=== PATIENT | female | born 1960 | race Caucasian/White ===

== ENCOUNTER 2022-08-14 23:24 | Emergency (ER) | payer OTHER ==
[2022-08-14 23:34] VITALS: BP 153/62; PULSE 90; RESP 18; TEMP 99.6; BMI 28.3
[2022-08-15] MEDS ORDERED: IBUPROFEN 400 MG TABLET (FP) PO ONE (00:01)
== END 2022-08-15 00:56 | disposition home or self-care (01) ==
LOC: JER 23:24
DX: J02.0 Streptococcal pharyngitis (principal)
CPT/HCPCS: 87651; 99283-25

== ENCOUNTER 2023-12-28 02:43 | Emergency (ER) | payer OTHER ==
[2023-12-28 02:50] VITALS: RESP 18; TEMP 97.9; BMI 21.7
[2023-12-28] MEDS ORDERED: MAG HYDROX/AL HYDROX/SIMETH 30 ML UNIT-DOSE CUP ONE (03:40)
[2023-12-28] MEDS ORDERED: FAMOTIDINE 20 MG/50 ML IVPB 20 MG/50 ML MG IVPB ONE (03:40)
[2023-12-28] MEDS ORDERED: ONDANSETRON 4 MG/2 ML VIAL ONE (03:40)
[2023-12-28 03:41] LABS: BASO % 0.9 % (0-2.0); EOS % 0.8 % (0-4.5); HEMATOCRIT 30.1 % (32.4-45.2); HEMOGLOBIN 9.6 GM/dL (10.7-15.3); LYMPH % 22.7 % (8-40); MCH 25.4 pg (25.7-33.7); MCHC 31.8 g/dl (32.0-36.0); MEAN CELL VOLUME 79.9 fl (80-96); MEAN PLT VOLUME 8.4 fl (7.5-11.1); MONO % 8.9 % (3.8-10.2); NEUT % 66.7 % (42.8-82.8); PLATELET COUNT 309 10^3/uL (134-434); RBC 3.77 M/mm3 (3.60-5.2); WHITE BLOOD COUNT 11.4 K/mm3 (4.0-10.0)
[2023-12-28] MEDS: MAG HYDROX/AL HYDROX/SIMETH 30 ML UNIT-DOSE CUP PO ONE (03:47)
[2023-12-28] MEDS: FAMOTIDINE 20 MG/50 ML IVPB 20 MG/50 ML MG IVPB ONE (03:47)
[2023-12-28] MEDS: ONDANSETRON 4 MG/2 ML VIAL IVPUSH ONE (03:47)
[2023-12-28] MEDS: IOHEXOL (OMNIPAQUE IV) 350 MG/ML - 100 ML BOTTLE PO ONE (03:47)
[2023-12-28 03:50] LABS: INR 1.52 (0.83-1.09); PROTHROMBIN TIME (PATIENT) 17.3 SEC (9.7-13.0)
[2023-12-28 03:52] LABS: ACTIVATED PTT 35.8 SECONDS (25.2-36.5)
[2023-12-28 04:55] LABS: POTASSIUM 4.4 mmol/L (3.5-5.1)
[2023-12-28 04:58] LABS: ALBUMIN 2.8 g/dl (3.4-5.0); BLOOD UREA NITROGEN 19.4 mg/dL (7-18); CALCIUM 8.9 mg/dL (8.5-10.1)
[2023-12-28 05:01] LABS: CREATININE 0.8 mg/dL (0.55-1.3)
[2023-12-28 05:03] LABS: BILIRUBIN,TOTAL 0.4 mg/dL (0.2-1); TOT PROT 6.6 g/dl (6.4-8.2)
[2023-12-28] MEDS ORDERED: ACETAMINOPHEN INJECTION 100 ML ONE (05:50)
[2023-12-28] MEDS: ACETAMINOPHEN 1000 MG/100 ML BAG IVPB ONE (06:12)
[2023-12-28 07:50] LABS: EPI CELLS 7 /uL (0-25.1); HYALINE CASTS 1 /uL (0-3.1); URINE APPEARANCE CLEAR; URINE BACTERIA 13 /uL (0-1359); URINE BILIRUBIN NEGATIVE (NEGATIVE); URINE COLOR YELLOW; URINE GLUCOSE (UA) 3+ (NEGATIVE); URINE KETONE NEGATIVE (NEGATIVE); URINE LEUK ESTERASE TRACE (NEGATIVE); URINE NITRITE NEGATIVE (NEGATIVE); URINE PROTEIN NEGATIVE (NEGATIVE); URINE RBC 8 /uL (0-23.9); URINE UROBILINOGEN 0.2 mg/dL (0.2-1.0); URINE WBC 28 /uL (0-25.8)
[2023-12-28 07:55] VITALS: BP 112/48; PULSE 62
== END 2023-12-28 07:30 | disposition left against medical advice (07) ==
LOC: JER 02:43
PROC: 3E033GC Introduction of Other Therapeutic Substance into Peripheral Vein, Percutaneous Approach (ICD-10-PCS; principal; 2023-12-28)
PROC: 3E033NZ Introduction of Analgesics, Hypnotics, Sedatives into Peripheral Vein, Percutaneous Approach (ICD-10-PCS; 2023-12-28)
PROC: 3E033GC Introduction of Other Therapeutic Substance into Peripheral Vein, Percutaneous Approach (ICD-10-PCS; 2023-12-28)
DX: R10.13 Epigastric pain (principal); K59.00 Constipation, unspecified; R11.0 Nausea
CPT/HCPCS: 36415; 74177-TC; 80053; 81003; 83605; 83690; 84484; 85025; 85610; 85730; 86850; 86900; 86901; 87086; 93005; 93010; 99285-25; J0131; Q9967

== ENCOUNTER 2024-01-14 12:36 | Emergency (ER) | payer OTHER ==
[2024-01-14 13:05] VITALS: BP 133/88; PULSE 61; RESP 18; TEMP 97.4; BMI 21.7
[2024-01-14] MEDS ORDERED: ACETAMINOPHEN INJECTION 100 ML ONE (14:26)
[2024-01-14] MEDS ORDERED: FAMOTIDINE 20 MG/50 ML IVPB 20 MG/50 ML MG IVPB ONE (14:26)
[2024-01-14] MEDS: FAMOTIDINE 20 MG/50 ML IVPB 20 MG/50 ML MG IVPB ONE (14:33)
[2024-01-14] MEDS: SODIUM CHLORIDE 500 ML IV STA (14:33)
[2024-01-14] MEDS: ACETAMINOPHEN 1000 MG/100 ML BAG IVPB ONE (14:33)
[2024-01-14 14:53] LABS: BASO % 0.3 % (0-2.0); EOS % 1.1 % (0-4.5); HEMATOCRIT 31.9 % (32.4-45.2); HEMOGLOBIN 10.1 GM/dL (10.7-15.3); LYMPH % 24.1 % (8-40); MCH 25.9 pg (25.7-33.7); MCHC 31.7 g/dl (32.0-36.0); MEAN CELL VOLUME 81.6 fl (80-96); MEAN PLT VOLUME 8.7 fl (7.5-11.1); MONO % 10.2 % (3.8-10.2); NEUT % 64.3 % (42.8-82.8); PLATELET COUNT 319 10^3/uL (134-434); RBC 3.91 M/mm3 (3.60-5.2); RDW 21.1 % (11.6-15.6); WHITE BLOOD COUNT 8.3 K/mm3 (4.0-10.0)
[2024-01-14 14:57] LABS: PH,URINE 7.5 (5.0-8.0); URINE APPEARANCE CLEAR; URINE BILIRUBIN NEGATIVE (NEGATIVE); URINE COLOR YELLOW; URINE GLUCOSE (UA) NEGATIVE (NEGATIVE); URINE KETONE NEGATIVE (NEGATIVE); URINE LEUK ESTERASE NEGATIVE (NEGATIVE); URINE NITRITE NEGATIVE (NEGATIVE); URINE PROTEIN NEGATIVE (NEGATIVE); URINE UROBILINOGEN 0.2 mg/dL (0.2-1.0)
[2024-01-14 15:18] LABS: ANISOCYTOSIS 1+; MACROCYTOSIS 0
[2024-01-14 15:19] LABS: POTASSIUM 3.5 mmol/L (3.5-5.1)
[2024-01-14 15:22] LABS: ALBUMIN 3.3 g/dl (3.4-5.0); CALCIUM 9.3 mg/dL (8.5-10.1); MAGNESIUM 1.7 mg/dL (1.8-2.4)
[2024-01-14 15:25] LABS: CREATININE 0.7 mg/dL (0.55-1.3)
[2024-01-14 15:27] LABS: BILIRUBIN,TOTAL 0.4 mg/dL (0.2-1); BLOOD UREA NITROGEN 13.3 mg/dL (7-18); TOT PROT 7.3 g/dl (6.4-8.2)
[2024-01-14] MEDS ORDERED: POLYETHYLENE GLYCOL (HEALTHYLAX) 3350 17 GM PACKET ONE (16:31)
[2024-01-14] MEDS ORDERED: POTASSIUM CHLORIDE TABS 20 MEQ TABLET.ER (FP) PO ONE (16:31)
[2024-01-14] MEDS ORDERED: MAGNESIUM SULFATE IN WATER 2 GM/50 ML IVPB IVPB ONE (16:32)
[2024-01-14] MEDS: POTASSIUM CHLORIDE TABS 20 MEQ TABLET.ER (FP) PO ONE (16:41)
[2024-01-14] MEDS: MAGNESIUM SULFATE IN WATER 2 GM/50 ML IVPB IVPB ONE (16:41)
[2024-01-14] MEDS: POLYETHYLENE GLYCOL (HEALTHYLAX) 3350 17 GM PACKET PO SCH (16:41)
== END 2024-01-14 18:21 | disposition home or self-care (01) ==
LOC: JER 12:36
PROC: 3E033GC Introduction of Other Therapeutic Substance into Peripheral Vein, Percutaneous Approach (ICD-10-PCS; principal; 2024-01-14)
PROC: 3E033GC Introduction of Other Therapeutic Substance into Peripheral Vein, Percutaneous Approach (ICD-10-PCS; 2024-01-14)
PROC: 3E033NZ Introduction of Analgesics, Hypnotics, Sedatives into Peripheral Vein, Percutaneous Approach (ICD-10-PCS; 2024-01-14)
DX: E83.42 Hypomagnesemia (principal); R10.13 Epigastric pain; R10.30 Lower abdominal pain, unspecified; R11.0 Nausea; R30.0 Dysuria
CPT/HCPCS: 36415; 74177-TC; 80053; 81003; 82550; 83605; 83690; 83735; 84484; 85025; 87086; 93005; 93010; 99285-25; J0131; Q9967

== ENCOUNTER 2024-12-20 12:04 | Emergency (ER) | payer OTHER ==
[2024-12-20 12:10] VITALS: BP 118/50; PULSE 77; RESP 18; TEMP 98.2; BMI 23.3
[2024-12-20] MEDS ORDERED: LIDOCAINE 4% PATCH TP ONE (12:46)
[2024-12-20] MEDS ORDERED: ACETAMINOPHEN 500 MG TABLET (FP) ONE (12:46)
[2024-12-20] MEDS: LIDOCAINE 4% PATCH TP ONE (12:51)
[2024-12-20] MEDS: ACETAMINOPHEN 500 MG TABLET (FP) PO ONE (12:51)
[2024-12-20] MEDS ORDERED: LIDOCAINE PATCH REMOVAL MC ONE (22:00)
== END 2024-12-20 14:31 | disposition home or self-care (01) ==
LOC: JERFT 12:04
DX: M62.838 Other muscle spasm (principal); M54.2 Cervicalgia; M25.512 Pain in left shoulder
CPT/HCPCS: 73030-TC-RT-FY; 99283-25